=== PATIENT | female | born 1950 | race Caucasian/White ===

== ENCOUNTER 2020-08-27 08:45 | Observation (INO) | payer MEDICARE, OTHER ==
[~2020-08-27] VITALS: Ht 154.9 cm; Wt 73.9 kg
--- NOTE | 2020-08-27 08:50 | NUR ---
Pt assisted by [facility] personnel to restroom and provided instructions/equipment for UA sample to be obtained. RN received report from other [facility] staff and pt's daughter as to the event causing her to need 911 services with transport today. Pt noted to be steady on her feet with minimal one-person assistance being provided from EMS gurney to bathroom.
--- NOTE | 2020-08-27 09:00 | NUR ---
Clear light yellow uop sample obtained, pt brought to room and changed into gown, placed on monitor and sales and service representative completed. PA arrived at bedside for exam as well.
[2020-08-27] MEDS ORDERED: SODIUM CHLORIDE FLUSH 10ML SYR IVF ONE (09:30)
[2020-08-27] MEDS ORDERED: ONDANSETRON 2MG/ML, 2ML IVPush ONE (09:30)
--- NOTE | 2020-08-27 09:55 | NUR ---
Pt being brought to CT via gurney. Labs drawn and PCXR already completed prior to leaving unit for CT.
[2020-08-27 09:56] LABS: BASOPHILS % (AUTO) 0 % (0-1); EOSINOPHILS % (AUTO) 0 % (1-7); LYMPHOCYTES % (AUTO) 15 % (22-44); MD NO; MEAN CORPUSCULAR HEMOGLOBIN 32.8 pg (27.0-34.8); MEAN CORPUSCULAR HGB CONC 34.7 g/dL (32.4-35.8); MEAN PLATELET VOLUME 8.8 fL (7.4-10.4); MONOCYTES % (AUTO) 4 % (2-9); NEUTROPHILS % (AUTO) 80 % (42-75); PLATELET COUNT 213 x10^3/uL (130-400); RED BLOOD COUNT 4.37 x10^6/uL (3.82-5.3); RED CELL DISTRIBUTION WIDTH 12.9 % (9.6-15.2)
[2020-08-27 10:00] LABS: ALBUMIN 3.8 g/dL (3.4-5.0); ANION GAP 6 mmol/L (5-15); CALCIUM 9.5 mg/dL (8.5-10.1); CHLORIDE 112 mmol/L (98-107)
[2020-08-27 10:05] LABS: ALANINE AMINOTRANSFERASE 20 U/L (12-78); ALKALINE PHOSPHATASE 98 U/L (45-117); BILIRUBIN,TOTAL 0.6 mg/dL (0.2-1.0); TOTAL PROTEIN 7.7 g/dL (6.4-8.2); TROPONIN I < 0.015 ng/mL (0.000-0.045)
--- NOTE | 2020-08-27 10:10 | NUR ---
Pt found back in room without acute changes noted while off unit.
--- NOTE | 2020-08-27 10:30 | NUR ---
MD at bedside to discuss findings and plan of care recommendations.
[2020-08-27] MEDS ORDERED: ASPIRIN 81 MG TABLET CHEW PO ONE (11:00)
[2020-08-27] MEDS ORDERED: ASPIRIN 81 MG TABLET CHEW ONE (11:14)
[2020-08-27] MEDS ORDERED: marijuana INH (11:21)
--- NOTE | 2020-08-27 11:50 | NUR ---
Attempted to call report to floor at this time, but RN is currently busy in another and message received that she will call back shortly when available.
[2020-08-27] MEDS ORDERED: SODIUM CHLORIDE FLUSH 10ML SYR IVF PRN (12:00)
[2020-08-27] MEDS ORDERED: ENOXAPARIN 40 MG/0.4 ML SQ SCH (12:00)
[2020-08-27] MEDS ORDERED: ACETAMINOPHEN 325 MG TABLET PO PRN (12:00)
[2020-08-27] MEDS ORDERED: ONDANSETRON 2MG/ML, 2ML IVPush PRN (12:00)
[2020-08-27] MEDS ORDERED: ONDANSETRON ODT 4 MG PO PRN (12:00)
--- NOTE | 2020-08-27 12:16 | NUR ---
Pt leaving for MRI at this time via [employer]. Calling floor back now for report.
--- NOTE | 2020-08-27 12:25 | NUR ---
Report given to Annabel, RN and pt to go to room 422 when back from MRI.
--- NOTE | 2020-08-27 12:50 | NUR ---
Pt back from MRI and waiting for transport up to room now.
--- NOTE | 2020-08-27 13:10 | NUR ---
Techs present at bedside to take pt up via gurney on monitor.
[2020-08-27 13:25] VITALS: BP 152/88
[2020-08-27] MEDS: SODIUM CHLORIDE 0.9% 1,000 ML IV SCH (13:54)
[2020-08-27 14:47] VITALS: BP 168/89
[2020-08-27 18:25] VITALS: BP 119/72
[2020-08-27] MEDS ORDERED: ATORVASTATIN 80 MG TABLET PO SCH (21:00)
[2020-08-28 00:09] VITALS: BP 130/73
[2020-08-28 05:09] LABS: CHOL/HDL RATIO 3.5; LDL/HDL RATIO 2.1 (0.5-3.0)
[2020-08-28] MEDS ORDERED: ASPIRIN 325 MG TABLET PO SCH (06:00)
[2020-08-28 06:26] VITALS: BP 132/79
[2020-08-28] MEDS ORDERED: ASPI81TA45 PO (10:34)
[2020-08-28] MEDS ORDERED: ATOR-2 PO (10:34)
[2020-08-28] MEDS: SODIUM CHLORIDE 0.9% 1,000 ML IV SCH (11:00)
[2020-08-28 12:02] VITALS: BP 116/64
== END 2020-08-28 14:00 | disposition home or self-care (01) ==
LOC: ED 10:53 → EDIP 13:09 → INTOOBSV 13:09 → 4WST 13:16 → DCLOUNGE 08-28 13:49
PROVIDERS: ADMIT Internal Medicine; ATTEND Internal Medicine
DX: G45.9 Transient cerebral ischemic attack, unspecified (principal); I63.9 Cerebral infarction, unspecified; R53.81 Other malaise; K22.70 Barrett's esophagus without dysplasia; G43.909 Migraine, unspecified, not intractable, without status migrainosus; M19.90 Unspecified osteoarthritis, unspecified site; E66.9 Obesity, unspecified; F15.10 Other stimulant abuse, uncomplicated; Z79.899 Other long term (current) drug therapy; Z79.82 Long term (current) use of aspirin
CPT/HCPCS: 36415; 70450; 70551; 71045; 80053; 80061; 84484; 85025; 93005; 93306; 93880; 96360; 96361; 96372; 97162; 97165; 99285; G0378; J1650; J7030

== ENCOUNTER 2020-08-30 10:16 | Emergency (ER) | payer MEDICARE ==
[~2020-08-30] VITALS: Ht 154.9 cm; Wt 70.0 kg
[~2020-08-30 10:16] MED LIST: ASPI81TA45 PO; ATOR-2 PO; marijuana INH
--- NOTE | 2020-08-30 10:16 | NUR ---
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
[2020-08-30] MEDS ORDERED: SODIUM CHLORIDE FLUSH 10ML SYR IVF ONE (11:00)
--- NOTE | 2020-08-30 11:04 | NUR ---
PT UPRIGHT ON GURNEY AWAKE & CALM, UNABLE VOID AT THIS TIME- WILL CONT TO ENCOURAGE FOR UA SAMPLE, RESPONDS APPROP TO STAFF, NAD AT REST, NO NEEDS AT THIS TIME, DAUGHTER AT BS, CALL LIGHT WITHIN REACH.
[2020-08-30 11:12] LABS: BASOPHILS % (AUTO) 0 % (0-1); EOSINOPHILS % (AUTO) 1 % (1-7); LYMPHOCYTES % (AUTO) 17 % (22-44); MEAN CORPUSCULAR HEMOGLOBIN 32.7 pg (27.0-34.8); MEAN CORPUSCULAR HGB CONC 34.8 g/dL (32.4-35.8); MEAN PLATELET VOLUME 8.5 fL (7.4-10.4); MONOCYTES % (AUTO) 6 % (2-9); NEUTROPHILS % (AUTO) 76 % (42-75); PLATELET COUNT 198 x10^3/uL (130-400); RED BLOOD COUNT 4.38 x10^6/uL (3.82-5.3); RED CELL DISTRIBUTION WIDTH 13.3 % (9.6-15.2)
[2020-08-30 11:14] LABS: MD NO
[2020-08-30 11:25] LABS: ALANINE AMINOTRANSFERASE 20 U/L (12-78); ALBUMIN 3.6 g/dL (3.4-5.0); ANION GAP 8 mmol/L (5-15); CALCIUM 9.2 mg/dL (8.5-10.1); CHLORIDE 112 mmol/L (98-107); CREATININE 0.72 mg/dL (0.55-1.02)
[2020-08-30 11:28] LABS: ALKALINE PHOSPHATASE 96 U/L (45-117); BILIRUBIN,TOTAL 0.6 mg/dL (0.2-1.0); TOTAL PROTEIN 7.3 g/dL (6.4-8.2)
--- NOTE | 2020-08-30 11:29 | NUR ---
REPORT GIVEN TO LUIS E
[2020-08-30] MEDS ORDERED: PROCHLORPERAZINE 5 MG/ML, 2ML IVPush ONE (11:30)
[2020-08-30] MEDS ORDERED: KETOROLAC 30 MG/1 ML IVPush ONE (11:30)
--- NOTE | 2020-08-30 11:30 | NUR ---
Care assumed, lights dimmed in room per pt request. Pt aware of need for UA sample JORGE LUIS. Call light in reach.
[2020-08-30] MEDS ORDERED: KETOROLAC 30 MG/1 ML ONE (12:08)
[2020-08-30] MEDS ORDERED: PROCHLORPERAZINE 5 MG/ML, 2ML ONE (12:08)
--- NOTE | 2020-08-30 12:17 | NUR ---
UA sample obtained by a secondary RN and meds given as ordered. Pt able to use BSC with steady gait and minimal one person assistance per other RN's report.
[2020-08-30 12:46] LABS: MICROSCOPIC AUTO
--- NOTE | 2020-08-30 13:13 | NUR ---
Pain decreased some per pt report on reassessment after medical assistant instructor. MD at bedside for recheck and discussion of plan of care.
--- NOTE | 2020-08-30 13:15 | NUR ---
Steff tello in EDM - 08/30/20 at 1407 by MARLON Pt reassessed with good effect noted per pt on reassessment after assistant media buyer. Awaiting reassessment by .
[2020-08-30 14:19] VITALS: BP 134/73
== END 2020-08-30 14:27 | disposition home or self-care (01) ==
LOC: ED 14:00
DX: G43.109 Migraine with aura, not intractable, without status migrainosus (principal); R10.32 Left lower quadrant pain; R10.12 Left upper quadrant pain; Z86.73 Personal history of transient ischemic attack (TIA), and cerebral infarction without residual deficits
CPT/HCPCS: 36415; 80053; 81001; 85025; 96374; 96375; 99285; J0780; J1885